=== PATIENT | female | born 1985 | race Caucasian/White ===

== ENCOUNTER 2016-07-17 21:13 | Emergency (ER) | payer SELFPAY ==
--- NOTE | 2016-07-21 19:08 | ER ---
ADMIT: 07/17/2016 RM/LOC: ER [facility] MR#: [id number] [address] [id number] CELIA VILLEDA [address] [place] [address] Emergency Room Report SEX: F AGE: 31 : 1985 DATE: 07/17/2016 HISTORY OF PRESENT ILLNESS: The patient is a 31-year-old female, came to the ER with chief complaint of sore throat and small bumps on the neck and submandibular, which are tender for the last 5 days. The patient states she used the medication, amoxicillin of her friends and it did not work. PHYSICAL EXAMINATION: VITAL SIGNS: In the ER, the patient was afebrile, in no distress, sitting in the bed quietly. The patient had normal respiratory rate and O2 saturation 100% on room air. The patient was not tachycardic. HEENT/NECK. The patient had erythema on bilateral oropharynx and also had some exudate on bilateral oropharynx too. There was no peritonsillar abscess and there was no swelling or raised floor of the mouth. There was no swelling of the maxillary or mandibular area grossly obviously. The patient had mild tenderness in the submandibular lymph nodes and also anterior neck chain lymph nodes, which all of them was about maximum 5 mm lymph nodes. The patient had no trismus, no muffled voice, and no drooling. LUNGS: Clear. The rest of the physical exam is noncontributory. EMERGENCY DEPARTMENT COURSE: The patient was positive for rapid strep test for strep group A. The patient received benzathine penicillin G 1.2 milliunit IM and was discharged to home with followup with the primary doctor. Shantanu Acevedo MD/ mic JOB #: [id number] CC: Shantanu Acevedo MD, Attending Physician Larry Almendarez MD, Family Physician
== END 2016-07-17 22:45 | disposition home or self-care (01) ==
LOC: ER 21:13
DX: J02.0 Streptococcal pharyngitis (principal); F17.210 Nicotine dependence, cigarettes, uncomplicated